=== PATIENT | female | born 1995 | race Caucasian/White ===

== ENCOUNTER 2017-03-19 12:11 | Emergency (ER) | payer MEDICAID ==
[~2017-03-19] VITALS: Ht 157.5 cm; Wt 64.0 kg
[2017-03-19] MEDS: IBUPROFEN 800MG TABLET PO ONE ×2 (13:11→13:16)
[2017-03-19 13:16] VITALS: BP 124/89
== END 2017-03-19 13:58 | disposition home or self-care (01) ==
LOC: ER 12:11
DX: H66.90 Otitis media, unspecified, unspecified ear (principal); R53.1 Weakness
CPT/HCPCS: 99283